=== PATIENT | male | born 1950 | race Caucasian/White ===

== ENCOUNTER 2022-06-19 14:39 | Inpatient (IN) | payer MEDICARE, OTHER ==
[~2022-06-19] VITALS: Ht 182.9 cm; Wt 82.1 kg
--- NOTE | 2022-06-19 15:18 | NUR ---
MOVE SHEET SUBMITTED.
[2022-06-19] MEDS ORDERED: MORPHINE SULFATE INJ 2 MG/ML DISP.SYRIN IV ONE (15:30)
--- NOTE | 2022-06-19 15:33 | NUR ---
IV ESTABLISHED. L HAND 20G
[2022-06-19] MEDS ORDERED: MORPHINE SULFATE INJ 4 MG/ML DISP.SYRIN ONE (15:35)
[2022-06-19] MEDS ORDERED: DOCU100C58 PO (15:55)
[2022-06-19] MEDS ORDERED: DIVA-76 PO (15:55)
[2022-06-19] MEDS ORDERED: BENA40TA8 PO (15:55)
[2022-06-19] MEDS ORDERED: SENN-261 PO (15:55)
[2022-06-19] MEDS ORDERED: BENZ1TAB7 PO (15:55)
[2022-06-19] MEDS ORDERED: PARO20TA7 PO (15:55)
[2022-06-19] MEDS ORDERED: ASCO-352 PO (15:55)
[2022-06-19] MEDS ORDERED: LORA-259 PO (15:55)
[2022-06-19] MEDS ORDERED: ACET-868 PO (15:55)
[2022-06-19] MEDS ORDERED: FLUP5TAB14 PO (15:55)
[2022-06-19] MEDS ORDERED: METO25TA20 PO (15:55)
[2022-06-19] MEDS ORDERED: ATOR10TA PO (15:55)
[2022-06-19] MEDS ORDERED: TAMS-12 PO (15:55)
[2022-06-19] MEDS ORDERED: AMLO-213 PO (15:55)
[2022-06-19] MEDS ORDERED: MAG30ORA PO (15:55)
[2022-06-19] MEDS ORDERED: CYAN-51 PO (15:55)
[2022-06-19] MEDS ORDERED: TEMA15CA PO (15:55)
[2022-06-19 15:57] LABS: BASOPHILS % (AUTO) 0.1 % (0.0-2.0); HEMATOCRIT 38 % (39-51); HEMOGLOBIN 12.6 g/dL (13.5-17.5); LYMPHOCYTES # (AUTO) 0.8 K/uL (0.8-4.8); LYMPHOCYTES % (AUTO) 11.6 % (20.0-44.0); MEAN CORPUSCULAR HGB CONC 33 g/dl (31.0-36.0); MEAN CORPUSCULAR VOLUME 96 fL (80-96); MONOCYTES # (AUTO) 1.1 K/uL (0.1-1.30); MONOCYTES % (AUTO) 15.6 % (2.0-12.0); NEUTROPHILS # (AUTO) 5.3 K/uL (1.8-8.9); NEUTROPHILS % (AUTO) 72.7 % (43.0-81.0); PLATELET COUNT (AUTO) 208 K/uL (150-450); RED BLOOD CELL COUNT(AUTO) 3.94 MIL/uL (4.5-6.0); WHITE BLOOD COUNT (AUTO) 7.3 K/uL (4.3-11.0)
[2022-06-19 16:33] LABS: CALCIUM, SERUM 9.4 mg/dL (8.5-10.1); CREATININE 1.4 mg/dL (0.6-1.3); POTASSIUM 4.1 mmol/L (3.5-5.1)
--- NOTE | 2022-06-19 16:41 | NUR ---
HIRAL SANCHEZ COLLECTED, SENT TO LAB
--- NOTE | 2022-06-19 16:49 | NUR ---
[facility] SWAB TAKEN BY TECH
[2022-06-19 17:11] LABS: ALBUMIN 2.9 g/dL (3.4-5.0); BILIRUBIN,DIRECT 0.2 mg/dL (0.0-0.2); BILIRUBIN,TOTAL 0.6 mg/dL (0.2-1.0); TOTAL PROTEIN, SERUM 8.6 g/dL (6.4-8.2)
--- NOTE | 2022-06-19 17:12 | NUR ---
CONTACTED DR. BRAXTON TO CALL US BACK.
--- NOTE | 2022-06-19 17:32 | NUR ---
GOT BED 325-2 ADMITTING INFORMED.
--- NOTE | 2022-06-19 17:42 | NUR ---
report given to Rita for continuation of care. Going to bed 325-2.
[2022-06-19] MEDS ORDERED: IV NS 0.9% 1,000 ML IV ONE (18:00)
--- NOTE | 2022-06-19 18:09 | NUR ---
CALLED [facility] DR. BRAXTON [phone] X [phone] PAGED.
--- NOTE | 2022-06-19 18:38 | NUR ---
DR. DUENAS SPEAKING WITH DR. SHAVER.
--- NOTE | 2022-06-19 18:44 | NUR ---
PATIENT TRANSPORTED TO BED 325-2
--- NOTE | 2022-06-19 19:30 | NUR ---
MS BIOSTATISTICS MANAGER NOTE RECEIVED REPORT FROM OUTGOING NURSE CELIO. PATIENT IN BED, AWAKE, ALERT AND ORIENTED X3. AFEBRILE AND NOT IN ANY FORM OF ACUTE DISTRESS. ABLE TO MAKE NEEDS KNOWN. PATIENT CAME TO THE HOSPITAL AFTER FALL WHILE TRANSFERRING TO THE WHEEL CHAIR AND WAS DIAGNOSED WITH CLOSED HIP RIGHT FRACTURE. EXPLAINED ADMISSION PROCESS WHICH INCLUDES SKIN ASSESSMENT AND THE PATIENT AGREED. UPON INSPECTION, PATIENT WAS NOTED DISCOLORATION ON THE AFFECTED AREA (R HIP). HAS IV ACCESS ON L HAND 20G-SL. SAFETY MEASURES IN PLACE. KEPT BED IN LOCKED AND IN LOW POSITION. SIDE RAILS UP X2. ADVISED TO USE THE CALL LIGHT WHEN IN NEED OF ASSISTANCE.
[2022-06-19 20:00] VITALS: BP 142/87
--- NOTE | 2022-06-19 20:10 | NUR ---
MS RN NOTES TRIED TO CALL JOVON ASENCIO (IMMEDIATE CARDROOM ATTENDANT) TO INFORM ABOUT THE ADMISSION AND TO GET CONSENT FOR PROPOSED PROCEDURE FOR TOMORROW BUT UNABLE TO GET HOLD. LEFT VOICE MESSAGE TO CALL THE UNIT BACK.
[2022-06-19] MEDS ORDERED: ACETAMINOPHEN 325 MG TABLET PO PRN (20:30)
[2022-06-19] MEDS ORDERED: ONDANSETRON HCL/PF 4 MG/2 ML VIAL IVP PRN (20:30)
[2022-06-19] MEDS ORDERED: ZOLPIDEM TARTRATE 5 MG TABLET PO PRN (20:30)
[2022-06-19] MEDS: IV NS 0.9% 1,000 ML IV PRN (20:50)
[2022-06-19] MEDS: HEPARIN SODIUM, PORCINE 5000 UNITS/1 ML VIAL SQ SCH (20:53)
[2022-06-20 05:45] LABS: BASOPHILS % (AUTO) 0.2 % (0.0-2.0); EOSINOPHILS % (AUTO) 0.1 % (0.0-6.0); HEMATOCRIT 38 % (39-51); HEMOGLOBIN 12.6 g/dL (13.5-17.5); LYMPHOCYTES % (AUTO) 14.7 % (20.0-44.0); MEAN CORPUSCULAR HGB CONC 34 g/dl (31.0-36.0); MEAN CORPUSCULAR VOLUME 95 fL (80-96); MONOCYTES # (AUTO) 1.3 K/uL (0.1-1.30); MONOCYTES % (AUTO) 19.2 % (2.0-12.0); NEUTROPHILS # (AUTO) 4.3 K/uL (1.8-8.9); NEUTROPHILS % (AUTO) 65.8 % (43.0-81.0); PLATELET COUNT (AUTO) 188 K/uL (150-450); RED BLOOD CELL COUNT(AUTO) 3.94 MIL/uL (4.5-6.0); WHITE BLOOD COUNT (AUTO) 6.5 K/uL (4.3-11.0)
[2022-06-20 06:02] LABS: CALCIUM, SERUM 9.1 mg/dL (8.5-10.1); CREATININE 1.2 mg/dL (0.6-1.3); MAGNESIUM 1.9 mg/dL (1.8-2.4); POTASSIUM 4.1 mmol/L (3.5-5.1)
--- NOTE | 2022-06-20 06:29 | NUR ---
MS RN CLOSING NOTE PATIENT IN BED, ASLEEP BUT EASY TO AROUSE AND RESPONSIVE. AFEBRILE AND NOT IN ANY FORM OF ACUTE DISTRESS. ABLE TO MAKE NEEDS KNOWN. ON O2 INHALATION VIA NASAL CANNULA AT 2LPM. WITH IV ACCESS ON L HAND 20G RUNNING WITH NS AT 75ML/HR. MAINTAINED ON NPO FOR PROPOSED PROCEDURE- CONSENT SIGNED AND SECURED. MEDICATED ORDERED. SAFETY MEASURES IN PLACE. KEPT BED IN LOCKED AND IN LOW POSITION. SIDE RAILS UP X2. ADVISED TO USE THE CALL LIGHT WHEN IN NEED OF ASSISTANCE. ALL NURSING NEEDS ATTENDED. ENDORSED TO INCOMING SHIFT FOR CONTINUITY OF CARE.
[2022-06-20 07:00] VITALS: BP 149/94
--- NOTE | 2022-06-20 07:48 | NUR ---
MS RN OPENING NOTE PATIENT AWAKE IN BED, A/OX3. NOT IN ANY FORM OF ACUTE DISTRESS. ABLE TO MAKE NEEDS KNOWN. ON O2 INHALATION VIA NASAL CANNULA AT 2LPM. WITH IV ACCESS ON L HAND 20G RUNNING WITH NS AT 75ML/HR. MAINTAINED ON NPO FOR PROPOSED PROCEDURE. SAFETY MEASURES IN PLACE. KEPT BED IN LOCKED AND IN LOW POSITION. SIDE RAILS UP X2. ADVISED TO USE THE CALL LIGHT WHEN IN NEED OF ASSISTANCE. ALL NURSING NEEDS ATTENDED. WILL CONTINUE TO MONITOR
[2022-06-20] MEDS: HEPARIN SODIUM, PORCINE 5000 UNITS/1 ML VIAL SQ SCH ×2 (08:34→21:00)
[2022-06-20] MEDS ORDERED: BUPIVACAINE 0.25% 75 MG/30 ML VIAL ONE (10:33)
[2022-06-20] MEDS ORDERED: LORAZEPAM 1 MG TABLET PO PRN (12:00)
[2022-06-20] MEDS ORDERED: TEMAZEPAM 15 MG CAPSULE PO PRN (12:00)
[2022-06-20] MEDS ORDERED: ACETAMINOPHEN 325 MG TABLET PO PRN (12:00)
[2022-06-20] MEDS ORDERED: HYDROCODONE/APAP 5/325MG TABLET PO PRN (12:00)
[2022-06-20] MEDS ORDERED: FLUPHENAZINE HCL 5 MG TABLET PO SCH (12:00)
[2022-06-20 12:05] LABS: BASOPHILS % (MANUAL) 0 % (0.0-2.0); EOSINOPHILS % (MANUAL) 0 % (0-4); LYMPHOCYTES % (MANUAL) 16 % (16-48); MONOCYTES % (MANUAL) 11 % (0-11.0); NEUTROPHILS % (MANUAL) 73 (42-76)
[2022-06-20] MEDS: FLUPHENAZINE HCL 10 MG TABLET PO SCH ×2 (12:50→17:51)
[2022-06-20] MEDS: PAROXETINE HCL 20 MG TABLET PO SCH (12:50)
[2022-06-20] MEDS: BENZTROPINE MESYLATE (1 MG) 1 MG TABLET PO SCH ×2 (12:52→17:52)
[2022-06-20] MEDS: CYANOCOBALAMIN 500 MCG TABLET PO SCH (12:52)
[2022-06-20] MEDS: ASCORBIC ACID 500 MG TABLET PO SCH (12:52)
[2022-06-20] MEDS: AMLODIPINE BESYLATE 10 MG TABLET PO SCH (12:52)
[2022-06-20] MEDS: DOCUSATE SODIUM 100 MG CAPSULE PO SCH ×2 (12:52→17:51)
[2022-06-20] MEDS: METOPROLOL TARTRATE 25 MG TABLET PO SCH ×2 (12:53→21:08)
[2022-06-20] MEDS: DIVALPROEX SODIUM 250 MG TABLET.DR PO SCH ×2 (12:53→17:00)
[2022-06-20] MEDS: IV NS 0.9% 1,000 ML IV PRN (15:09)
[2022-06-20 18:29] LABS: BILIRUBIN,URINE NEGATIVE (NEGATIVE); COLOR,URINE YELLOW (YELLOW); LEUKOCYTE ESTERASE ,URINE NEGATIVE (NEGATIVE); NITRITE, URINE NEGATIVE (NEGATIVE); PH,URINE 6.5 (5.0-8.0); PROTEIN,URINE NEGATIVE (NEGATIVE); UGLUCOSE NEGATIVE (NEGATIVE)
--- NOTE | 2022-06-20 19:00 | NUR ---
RN NOTES RENAL ULTRASOUND RESULT: Extensive bladder distention with prevoid bladder volume of 2493 cc and significant residual post void bladder volume of 2087 cc. Josue BUSINESS MANAGEMENT CONSULTANT made aware with bonilla catheter insertion ordered. Bonilla catheter inserted with total volume of 2000ml urine noted.
[2022-06-20 19:14] LABS: BACTERIA,URINE None seen /HPF (None Seen); RBC,URINE 0-2 /HPF (0-2); SQUAMOUS EPITHELIAL CELL,UR 0-2 /HPF (None Seen); WBC,URINE 0-2 /HPF (0-3)
--- NOTE | 2022-06-20 19:30 | NUR ---
MS RN OPENING NOTES RECEIVED PT SLEEPING AT THIS TIME, EASILY AROUSED. A/O X2-3, ABLE TO VERBALIZE NEEDS. NO RESPIRATORY OR CARDIAC DISTRESS NOTED. IV ACCESS LAC #20G, RUNNING NS @ 75 ML/HR. HERNANDEZ CATHETER IN PLACE, DRAINING CLEAR YELLOW URINE. SAFETY PRECAUTIONS IN PLACE: BED LOCKED AND IN LOWEST POSITION, SIDE RAILS UP X2, BED ALARM ON, CALL LIGHT AND TRAY TABLE WITHIN REACH. WILL CONTINUE TO MONITOR AND ASSIST. Addendum: 06/20/22 at 2000 by BELINDA ROSAS RN CORRECTION: IV ACCESS L HAND
[2022-06-20 20:00] VITALS: BP 140/80
--- NOTE | 2022-06-20 20:09 | NUR ---
MS RN CLOSING NOTE PATIENT IN BED, ASLEEP BUT EASY TO AROUSE AND RESPONSIVE. AFEBRILE AND NOT IN ANY FORM OF ACUTE DISTRESS. ABLE TO MAKE NEEDS KNOWN. ON O2 INHALATION VIA NASAL CANNULA AT 2LPM. WITH IV ACCESS ON L HAND 20G RUNNING WITH NS AT 75ML/HR. ON CARDIAC DIET CURRENTLY, WILL BE NPO POST MIDNIGHT FOR THE PROCEDURE TOMORROW. SAFETY MEASURES IN PLACE. KEPT BED IN LOCKED AND IN LOW POSITION. SIDE RAILS UP X2. ADVISED TO USE THE CALL LIGHT WHEN IN NEED OF ASSISTANCE. ALL NURSING NEEDS ATTENDED. ENDORSED TO INCOMING SHIFT FOR CONTINUITY OF CARE.
[2022-06-20] MEDS: SENNOSIDES 8.6 MG TABLET PO SCH (21:08)
[2022-06-20] MEDS: ATORVASTATIN 10 MG TABLET PO SCH (21:09)
[2022-06-20] MEDS: TAMSULOSIN 0.4 MG CAP.SR.24H PO SCH (21:09)
--- NOTE | 2022-06-20 21:18 | NUR ---
RN NOTE CONSULTED WITH DR BLAS ABOUT SCHEDULED HEPARIN 5000 UNITS @ 2100 RELATED TO SX FOR TOMORROW AM. MD ORDERED TO HOLD MEDICATION.
[2022-06-20] MEDS ORDERED: ANESTHESIA TRAY IN PYXIS 1 EA TRAY MC ONE (22:05)
[2022-06-21] MEDS: IV NS 0.9% 1,000 ML IV PRN (03:10)
[2022-06-21 06:17] LABS: CALCIUM, SERUM 8.9 mg/dL (8.5-10.1); MAGNESIUM 1.9 mg/dL (1.8-2.4); PHOSPHORUS 3.9 mg/dL (2.5-4.9)
--- NOTE | 2022-06-21 06:36 | NUR ---
MS RN CLOSING NOTES PT SLEEPING AT THIS TIME, EASILY AROUSED. A/O X2-3, ABLE TO VERBALIZE NEEDS. STABLE ON O2 2L VIA NC WITH NO RESPIRATORY OR CARDIAC DISTRESS NOTED. IV ACCESS L HAND #20G, RUNNING NS @ 75 ML/HR, PATENT AND INTACT. HERNANDEZ CATHETER IN PLACE, DRAINED 700ML OF CLEAR YELLOW URINE DURING SHIFT. NPO SINCE MIDNIGHT FOR SURGERY THIS AM. ALL CARE PROVIDED AND MEDS TOLERATED WELL. SAFETY PRECAUTIONS MAINTAINED: BED LOCKED AND IN LOWEST POSITION, SIDE RAILS UP X2, BED ALARM ON, CALL LIGHT AND TRAY TABLE WITHIN REACH. WILL ENDORSE SIS TO DAY SHIFT NURSE.
[2022-06-21 07:02] LABS: BASOPHILS % (AUTO) 0.3 % (0.0-2.0); EOSINOPHILS % (AUTO) 0.5 % (0.0-6.0); HEMATOCRIT 36 % (39-51); HEMOGLOBIN 12.2 g/dL (13.5-17.5); LYMPHOCYTES # (AUTO) 1.2 K/uL (0.8-4.8); LYMPHOCYTES % (AUTO) 20.3 % (20.0-44.0); MEAN CORPUSCULAR HGB CONC 34 g/dl (31.0-36.0); MEAN CORPUSCULAR VOLUME 96 fL (80-96); MONOCYTES # (AUTO) 1.2 K/uL (0.1-1.30); MONOCYTES % (AUTO) 19.4 % (2.0-12.0); NEUTROPHILS # (AUTO) 3.6 K/uL (1.8-8.9); NEUTROPHILS % (AUTO) 59.5 % (43.0-81.0); PLATELET COUNT (AUTO) 196 K/uL (150-450); RED BLOOD CELL COUNT(AUTO) 3.73 MIL/uL (4.5-6.0)
[2022-06-21] MEDS ORDERED: Magnesium 1 GM/2 ML VIAL ONE (07:15)
[2022-06-21] MEDS ORDERED: POLYMYXIN B SULFATE 500,000 UNITS ONE (07:16)
[2022-06-21] MEDS ORDERED: TRANEXAMIC ACID 1,000 MG/10 ML VIAL ONE ×2 (07:16→09:06)
[2022-06-21] MEDS ORDERED: BUPIVACAINE 0.25% 75 MG/30 ML VIAL ONE ×2 (07:17→07:36)
--- NOTE | 2022-06-21 07:20 | NUR ---
MS RN OPENING NOTES PT AWAKE A/O X2-3, ABLE TO VERBALIZE NEEDS. STABLE ON O2 2L VIA NC WITH NO RESPIRATORY OR CARDIAC DISTRESS NOTED. IV ACCESS L HAND #20G, RUNNING NS @ 75 ML/HR, PATENT AND INTACT. HERNANDEZ CATHETER IN PLACE, DRAINING CLEAR YELLOW URINE DURING SHIFT. NPO SINCE MIDNIGHT ENDORSED, PATIENT WAS DRIVE AWAY DRIVER BY OR STAFF FOR SURGERY TODAY. WILL MONITOR.
[2022-06-21] MEDS ORDERED: ALBUTEROL FS 2.5 MG/0.5 ML VIAL.NEB NEB ONE (07:30)
[2022-06-21] MEDS ORDERED: PANTOPRAZOLE 40 MG VIAL IV ONE (07:30)
[2022-06-21] MEDS ORDERED: FAMOTIDINE/PF INJ 20 MG/2 ML VIAL IV ONE (07:36)
[2022-06-21] MEDS ORDERED: FENTANYL PF 100MCG/2ML AMPUL ONE (07:36)
[2022-06-21] MEDS ORDERED: SUCCINYLCHOLINE CHLORIDE 20 MG/ML VIAL ONE (07:36)
[2022-06-21] MEDS ORDERED: ROCURONIUM BROMIDE 50 MG/5 ML ONE (07:36)
[2022-06-21] MEDS ORDERED: ALBUMIN 5% 250 ML IV ONE ×2 (08:45)
[2022-06-21] MEDS: METOPROLOL TARTRATE 25 MG TABLET PO SCH ×2 (09:00→20:54)
[2022-06-21] MEDS: HEPARIN SODIUM, PORCINE 5000 UNITS/1 ML VIAL SQ SCH ×2 (09:00→20:55)
[2022-06-21] MEDS: ASCORBIC ACID 500 MG TABLET PO SCH (09:00)
[2022-06-21] MEDS: AMLODIPINE BESYLATE 10 MG TABLET PO SCH (09:00)
[2022-06-21] MEDS: FLUPHENAZINE HCL 10 MG TABLET PO SCH ×2 (09:00→17:54)
[2022-06-21] MEDS: DOCUSATE SODIUM 100 MG CAPSULE PO SCH ×2 (09:00→17:54)
[2022-06-21] MEDS: BENZTROPINE MESYLATE (1 MG) 1 MG TABLET PO SCH ×2 (09:00→17:54)
[2022-06-21] MEDS: DIVALPROEX SODIUM 250 MG TABLET.DR PO SCH ×2 (09:00→17:54)
[2022-06-21] MEDS: CYANOCOBALAMIN 500 MCG TABLET PO SCH (09:00)
[2022-06-21] MEDS: PAROXETINE HCL 20 MG TABLET PO SCH (09:00)
[2022-06-21] MEDS ORDERED: TRANEXAMIC ACID 3,000 MG in SODIUM CHLORIDE IRRIG SOLUTION 70 ML IR ONE (09:30)
[2022-06-21] MEDS ORDERED: MEPERIDINE25 MG SYR 25 MG/ML VIAL ONE (10:49)
[2022-06-21 10:55] LABS: HEMOGLOBIN 11.6 g/dL (13.5-17.5)
[2022-06-21 11:47] VITALS: BP 143/83
[2022-06-21] MEDS ORDERED: SENNOSIDES 8.6 MG TABLET PO PRN ×2 (12:00)
[2022-06-21] MEDS ORDERED: HYDROCODONE/APAP 5/325MG TABLET PO PRN ×2 (12:00)
[2022-06-21] MEDS ORDERED: DOCUSATE SODIUM 250 MG CAPSULE PO PRN (12:00)
[2022-06-21] MEDS ORDERED: BISACODYL SUPP (10 MG) 10 MG/SUPP.RECT SUPP.RECT RC PRN (12:00)
[2022-06-21] MEDS ORDERED: DOCUSATE SODIUM 100 MG CAPSULE PO PRN (12:00)
[2022-06-21] MEDS ORDERED: ACETAMINOPHEN 325 MG TABLET PO PRN (12:00)
--- NOTE | 2022-06-21 12:35 | NUR ---
RN NOTES PATIENT CAME BACK FROM SURGERY S/P RIGHT HIP HEMIATHROSPLASTY, AWAKE BUT LETHARGIC, A/OX2. NO SIGNS OF RESPIRATORY OR CARDIAC DISTRESS NOTED. ON OXYGEN AT 6LPM, TOLERATING WELL. VITALS TAKEN,STABLE AND RECORDED BP-143/83 RR-20 UT-92 T-98.2 SPO2-99 AT 6LPM. RIGHT HIP DRESSING NOTED, DRY AND INTACT, NO BLEEDING OR SWELLING NOTED. HERNANDEZ CATHETER IN PLACE DRAINING YELLOW URINE. PATIENT NO C/O PAIN OR DISCOMFORT AT THIS TIME. RECEIVED A CALL FROM PACU NURSE TIERNEY TO CHANGE DRESSING ON DAY 2 POST OP BY NURSE ON DUTY. WILL MONITOR PATIENT ACCORDINGLY.
[2022-06-21] MEDS: MORPHINE SULFATE INJ 4 MG/ML DISP.SYRIN IV PRN ×2 (13:15→17:53)
--- NOTE | 2022-06-21 13:16 | NUR ---
RN NOTES PATIENT C/O PAIN, PRN MORPHINE ADMINISTERED. WILL MONITOR.
[2022-06-21 15:56] VITALS: BP 134/89
[2022-06-21] MEDS: ANCEF 1 GM/50 ML D5W IV SCH ×2 (16:36)
--- NOTE | 2022-06-21 18:35 | NUR ---
MS RN CLOSING NOTE PT SLEEPING AT THIS TIME, EASILY AROUSED. A/O X2-3, ABLE TO VERBALIZE NEEDS. STABLE ON O2 2L VIA NC WITH NO RESPIRATORY OR CARDIAC DISTRESS NOTED. IV ACCESS RT HAND #20G, RUNNING NS @ 75 ML/HR, PATENT AND INTACT. HERNANDEZ CATHETER IN PLACE DRAINING 1200ML YELLOW URINE DURING SHIFT. SURGERY DONE THIS AFTERNOON, NO COMPLICATIONS NOTED. ALL CARE PROVIDED AND MEDS TOLERATED WELL. SAFETY PRECAUTIONS MAINTAINED: BED LOCKED AND IN LOWEST POSITION, SIDE RAILS UP X2, BED ALARM ON, CALL LIGHT AND TRAY TABLE WITHIN REACH. WILL ENDORSE SIS TO ALCOHOL LAW ENFORCEMENT AGENT NURSE.
--- NOTE | 2022-06-21 19:30 | NUR ---
MS RN OPENING NOTE RECEIVED PATIENT IN BED, WITH HOB ELEVATED, EYES CLOSED. ALERT AND ORIENTED X2-3. AFEBRILE AND NOT IN ANY FORM OF ACUTE DISTRESS. ON O2 INHALATION VIA NASAL CANNULA AT 2LPM. WITH IV ACCESS ON R HAND 20G RUNNING WITH NS AT 75ML/HR. S/P R HIP HEMIARTHROPLASTY, DRESSING DRY AND INTACT. SAFETY MEASURES IN PLACE. KEPT BED IN LOCKED AND IN LOW POSITION. SIDE RAILS UP X2. ADVISED TO USE THE CALL LIGHT WHEN IN NEED OF ASSISTANCE.
[2022-06-21 20:00] VITALS: BP_SYST 122; BP_SYST 139; BP_DIAS 70; BP_DIAS 74
[2022-06-21] MEDS: SENNOSIDES 8.6 MG TABLET PO SCH (21:13)
[2022-06-21] MEDS: ATORVASTATIN 10 MG TABLET PO SCH (21:13)
[2022-06-21] MEDS: TAMSULOSIN 0.4 MG CAP.SR.24H PO SCH (21:13)
[2022-06-22] MEDS: ANCEF 1 GM/50 ML D5W IV SCH ×2 (00:09)
[2022-06-22] MEDS: IV NS 0.9% 1,000 ML IV PRN ×2 (00:10→15:42)
[2022-06-22 03:11] LABS: BAND % (MANUAL) 5 % (0.0-5.0); BASOPHILS % (MANUAL) 0 % (0.0-2.0); EOSINOPHILS % (MANUAL) 0 % (0-4); LYMPHOCYTES % (MANUAL) 18 % (16-48); MONOCYTES % (MANUAL) 15 % (0-11.0); NEUTROPHILS % (MANUAL) 62 (42-76)
[2022-06-22] MEDS: MORPHINE SULFATE INJ 2 MG/ML DISP.SYRIN IV PRN ×2 (04:35→14:31)
--- NOTE | 2022-06-22 06:21 | NUR ---
MS RN CLOSING NOTE PATIENT IN BED, WITH HOB ELEVATED, ASLEEP BUT EASY TO AROUSE AND RESPONSIVE. AFEBRILE AND NOT IN ANY FORM OF ACUTE DISTRESS. ON O2 INHALATION VIA NASAL CANNULA AT 2LPM. WITH IV ACCESS ON R HAND 20G RUNNING WITH NS AT 75ML/HR. S/P R HIP HEMIARTHROPLASTY, DRESSING DRY AND INTACT, NO BLEEDING NOTED ON THE SITE. WITH HERNANDEZ CATHETER, INTACT AND DRAINING WELL WITH GIGI COLORED URINE OUTPUT, NO HEMATURIA OR SEDIMENTS NOTED WITH APPROX. 300ML URINE OUTPUT DURING THE SHIFT. MEDICATED ORDERED. CONTINUOUS ON IV ATB, MONITORED FOR ANY ADVERSE REACTION. SAFETY MEASURES IN PLACE. KEPT BED IN LOCKED AND IN LOW POSITION. SIDE RAILS UP X2. ADVISED TO USE THE CALL LIGHT WHEN IN NEED OF ASSISTANCE. ALL NURSING NEEDS ATTENDED. ENDORSED TO INCOMING SHIFT FOR CONTINUITY OF CARE.
[2022-06-22 06:31] LABS: BASOPHILS % (AUTO) 0.1 % (0.0-2.0); HEMATOCRIT 31 % (39-51); HEMOGLOBIN 10.4 g/dL (13.5-17.5); LYMPHOCYTES # (AUTO) 1.2 K/uL (0.8-4.8); MEAN CORPUSCULAR HGB CONC 33 g/dl (31.0-36.0); MEAN CORPUSCULAR VOLUME 96 fL (80-96); MONOCYTES # (AUTO) 1.6 K/uL (0.1-1.30); MONOCYTES % (AUTO) 19.6 % (2.0-12.0); NEUTROPHILS # (AUTO) 5.3 K/uL (1.8-8.9); NEUTROPHILS % (AUTO) 65.3 % (43.0-81.0); PLATELET COUNT (AUTO) 187 K/uL (150-450); RED BLOOD CELL COUNT(AUTO) 3.27 MIL/uL (4.5-6.0); WHITE BLOOD COUNT (AUTO) 8.1 K/uL (4.3-11.0)
[2022-06-22 06:55] LABS: CALCIUM, SERUM 8.7 mg/dL (8.5-10.1); CREATININE 1.1 mg/dL (0.6-1.3); MAGNESIUM 1.9 mg/dL (1.8-2.4); PHOSPHORUS 3.5 mg/dL (2.5-4.9); POTASSIUM 4.5 mmol/L (3.5-5.1)
--- NOTE | 2022-06-22 07:30 | NUR ---
MS RN OPENING NOTE PATIENT SLEEPING IN BED, EASY TO AROUSE AND RESPONSIVE. AFEBRILE AND NOT IN ANY FORM OF ACUTE DISTRESS. ON O2 INHALATION VIA NASAL CANNULA AT 2LPM. WITH IV ACCESS ON R HAND 20G RUNNING WITH NS AT 75ML/HR. S/P R HIP HEMIARTHROPLASTY, DRESSING DRY AND INTACT, NO BLEEDING NOTED ON THE SITE. WITH HERNANDEZ CATHETER, INTACT AND DRAINING WELL WITH GIGI COLORED URINE OUTPUT, NO HEMATURIA OR SEDIMENTS NOTED. SAFETY MEASURES IN PLACE. KEPT BED IN LOCKED AND IN LOW POSITION. SIDE RAILS UP X2. WILL CONTINUE TO MONITOR.
[2022-06-22 08:00] VITALS: BP 141/83
[2022-06-22] MEDS: FLUPHENAZINE HCL 10 MG TABLET PO SCH ×2 (08:55→16:57)
[2022-06-22] MEDS: PAROXETINE HCL 20 MG TABLET PO SCH (08:55)
[2022-06-22] MEDS: METOPROLOL TARTRATE 25 MG TABLET PO SCH ×2 (08:55→21:18)
[2022-06-22] MEDS: CYANOCOBALAMIN 500 MCG TABLET PO SCH (08:56)
[2022-06-22] MEDS: BENZTROPINE MESYLATE (1 MG) 1 MG TABLET PO SCH ×2 (08:56→16:57)
[2022-06-22] MEDS: DIVALPROEX SODIUM 250 MG TABLET.DR PO SCH ×2 (08:56→16:57)
[2022-06-22] MEDS: ASCORBIC ACID 500 MG TABLET PO SCH (08:56)
[2022-06-22] MEDS: DOCUSATE SODIUM 100 MG CAPSULE PO SCH ×2 (08:56→16:57)
[2022-06-22] MEDS: AMLODIPINE BESYLATE 10 MG TABLET PO SCH (08:56)
[2022-06-22] MEDS: HEPARIN SODIUM, PORCINE 5000 UNITS/1 ML VIAL SQ SCH ×2 (08:58→21:19)
[2022-06-22 12:11] LABS: BASOPHILS % (MANUAL) 0 % (0.0-2.0); EOSINOPHILS % (MANUAL) 0 % (0-4); LYMPHOCYTES % (MANUAL) 12 % (16-48); MONOCYTES % (MANUAL) 17 % (0-11.0); NEUTROPHILS % (MANUAL) 71 (42-76)
--- NOTE | 2022-06-22 15:57 | NUR ---
RN NOTES REMOVED HERNANDEZ CATHETER, WILL MONITOR FOR URINE OUTPUT.
[2022-06-22 16:00] VITALS: BP 132/66
--- NOTE | 2022-06-22 18:55 | NUR ---
MS RN CLOSING NOTE PATIENT SLEEPING IN BED, EASY TO AROUSE AND RESPONSIVE. A/OX2, AFEBRILE AND NOT IN ANY FORM OF ACUTE DISTRESS. ON O2 INHALATION VIA NASAL CANNULA AT 3LPM. WITH IV ACCESS ON R HAND 20G RUNNING WITH NS AT 75ML/HR. S/P R HIP HEMIARTHROPLASTY, DRESSING DRY AND INTACT, NO BLEEDING NOTED ON THE SITE. REMOVED HERNANDEZ CATHETER AT 1600H ORDERED, TO MONITOR FOR URINE OUTPUT FOR 6HOURS. NO URINE OUTPUT OF THE THIS TIME, BLADDER SCAN DONE WITH 236ML REMAINING IN THE BLADDER, NOTIFIED CHRISTA MARINELLI WITH [employer] TO CONTINUE TO MONITOR URINE OUTPUT. SAFETY MEASURES IN PLACE. KEPT BED IN LOCKED AND IN LOW POSITION. SIDE RAILS UP X2. WILL CONTINUE TO MONITOR.
--- NOTE | 2022-06-22 19:30 | NUR ---
MS RN OPENING NOTE RECEIVED PT SLEEPING IN BED, EASY TO AROUSE AND RESPONSIVE. A/OX2, AFEBRILE AND NOT IN ANY FORM OF ACUTE DISTRESS. ON O2 3L VIA NC, WITH NO S/S OF SOB OR DISTRESS. DENIES PAIN AT THIS TIME. IV ACCESS L HAND #20G SL, R HAND #20G RUNNING WITH NS AT 75ML/HR. BOTH PATENT, INTACT, FLUSHING WELL. S/P R HIP HEMIARTHROPLASTY, DRESSING DRY AND INTACT, NO BLEEDING NOTED ON THE SITE. CONDOM CATHETER IN PLACE, NO URINE DRAINAGE NOTED IN BAG. WAS ENDORSED BY DAY SHIFT NURSE TO MONITOR URINE OUTPUT PER MD ORDER. SAFETY MEASURES IN PLACE: BED IN LOCKED AND IN LOW POSITION, SIDE RAILS UP X2, CALL LIGHT AND TRAY TABLE WITHIN REACH. WILL CONTINUE TO MONITOR AND ASSIST.
[2022-06-22 20:00] VITALS: BP 123/66
[2022-06-22 20:22] VITALS: BP 123/66
[2022-06-22] MEDS: ATORVASTATIN 10 MG TABLET PO SCH (21:17)
[2022-06-22] MEDS: SENNOSIDES 8.6 MG TABLET PO SCH (21:17)
[2022-06-22] MEDS: TAMSULOSIN 0.4 MG CAP.SR.24H PO SCH (21:17)
[2022-06-22] MEDS: MORPHINE SULFATE INJ 4 MG/ML DISP.SYRIN IV PRN (22:59)
--- NOTE | 2022-06-23 00:07 | NUR ---
RN NOTE URINARY CONDOM CATHETER IN PLACE, STILL NO DRAINING URINE NOTED IN BAG. BLADDER SCAN PERFORMED, MEASURED >528 ML OF URINARY RETENTION. FUEL DOCK ATTENDANT MARILOU BLAS INFORMED AND ORDERED INSERTION HERNANDEZ CATHETER.
--- NOTE | 2022-06-23 00:28 | NUR ---
RN NOTE HERNANDEZ CATH INSERTED ORDERED. PT TOLERATED WELL. 475 ML OF CLEAR YELLOW URINE DRAINAGE NOTED IN BAG.
[2022-06-23] MEDS: IV NS 0.9% 1,000 ML IV PRN (04:57)
--- NOTE | 2022-06-23 06:53 | NUR ---
MS RN CLOSING NOTE PT SLEEPING IN BED AT THIS TIME, EASILY AROUSABLE. A/O X2-3, ABLE TO MAKE NEEDS KNOWN, AFEBRILE. STABLE ON O2 3L VIA NC, WITH NO S/S OF SOB OR DISTRESS. DENIES PAIN AT THIS TIME. IV ACCESS L HAND #20G SL, R HAND #20G RUNNING WITH NS AT 75ML/HR. BOTH PATENT, INTACT, FLUSHING WELL. S/P R HIP HEMIARTHROPLASTY, DRESSING DRY AND INTACT, NO BLEEDING NOTED ON THE SITE. FIRST DRESSING CHANGE SCHEDULED POD #2 @ 1200, UNABLE TO TAKE PHOTO OF SX INCISION SITE. HERNANDEZ CATHETER INSERTED PER MD ORDER DUE TO URINARY RETENTION OF 528 ML PER BLADDER SCAN. ALL CARE PROVIDED AND MEDS TOLERATED WELL. SAFETY MEASURES MAINTAINED: BED IN LOCKED AND IN LOW POSITION, SIDE RAILS UP X2, CALL LIGHT AND TRAY TABLE WITHIN REACH. WILL ENDORSE SIS TO DAY SHIFT NURSE.
[2022-06-23 06:56] LABS: BASOPHILS % (AUTO) 0.4 % (0.0-2.0); EOSINOPHILS % (AUTO) 0.5 % (0.0-6.0); HEMATOCRIT 28 % (39-51); HEMOGLOBIN 9.3 g/dL (13.5-17.5); LYMPHOCYTES # (AUTO) 1.2 K/uL (0.8-4.8); LYMPHOCYTES % (AUTO) 20.7 % (20.0-44.0); MEAN CORPUSCULAR HGB CONC 34 g/dl (31.0-36.0); MEAN CORPUSCULAR VOLUME 97 fL (80-96); MONOCYTES % (AUTO) 17.6 % (2.0-12.0); NEUTROPHILS # (AUTO) 3.5 K/uL (1.8-8.9); NEUTROPHILS % (AUTO) 60.8 % (43.0-81.0); PLATELET COUNT (AUTO) 141 K/uL (150-450); RED BLOOD CELL COUNT(AUTO) 2.86 MIL/uL (4.5-6.0); WHITE BLOOD COUNT (AUTO) 5.8 K/uL (4.3-11.0)
[2022-06-23 07:00] VITALS: BP 140/76
[2022-06-23 07:09] LABS: CALCIUM, SERUM 8.5 mg/dL (8.5-10.1); CREATININE 0.9 mg/dL (0.6-1.3); MAGNESIUM 1.8 mg/dL (1.8-2.4); PHOSPHORUS 3.1 mg/dL (2.5-4.9); POTASSIUM 4.3 mmol/L (3.5-5.1)
--- NOTE | 2022-06-23 07:35 | NUR ---
MS RN OPENING NOTE PATIENT SLEEPING IN BED, EASILY BEING AWAKENED. A/OX2-3. ABLE TO MAKE NEEDS KNOWN. ON O2 INHALATION VIA NASAL CANNULA AT 2LPM, BREATHING EVEN AND NON LABORED. WITH IV ACCESS ON R HAND 20G RUNNING WITH NS AT 75ML/HR AND LEFT HAND 20G, PATENT AND INTACT, SL. S/P R HIP HEMIARTHROPLASTY, DRESSING DRY AND INTACT, NO BLEEDING NOTED ON THE SITE. WITH HERNANDEZ CATHETER, INTACT AND DRAINING WELL WITH GIGI COLORED URINE OUTPUT, NO HEMATURIA NOTED. SAFETY MEASURES IN PLACE. KEPT BED IN LOCKED AND IN LOW POSITION. SIDE RAILS UP X2. WILL CONTINUE TO MONITOR.
[2022-06-23 08:03] LABS: BAND % (MANUAL) 1 % (0.0-5.0); LYMPHOCYTES % (MANUAL) 22 % (16-48); MONOCYTES % (MANUAL) 17 % (0-11.0); NEUTROPHILS % (MANUAL) 60 (42-76)
[2022-06-23] MEDS: DIVALPROEX SODIUM 250 MG TABLET.DR PO SCH ×2 (08:27→16:45)
[2022-06-23 08:28] VITALS: BP 140/76
[2022-06-23] MEDS: METOPROLOL TARTRATE 25 MG TABLET PO SCH (08:28)
[2022-06-23] MEDS: AMLODIPINE BESYLATE 10 MG TABLET PO SCH (08:28)
[2022-06-23] MEDS: DOCUSATE SODIUM 100 MG CAPSULE PO SCH ×2 (08:28→16:46)
[2022-06-23] MEDS: FLUPHENAZINE HCL 10 MG TABLET PO SCH ×2 (08:29→16:46)
[2022-06-23] MEDS: PAROXETINE HCL 20 MG TABLET PO SCH (08:29)
[2022-06-23] MEDS: BENZTROPINE MESYLATE (1 MG) 1 MG TABLET PO SCH ×2 (08:29→16:45)
[2022-06-23] MEDS: CYANOCOBALAMIN 500 MCG TABLET PO SCH (08:30)
[2022-06-23] MEDS: ASCORBIC ACID 500 MG TABLET PO SCH (08:31)
[2022-06-23] MEDS: HEPARIN SODIUM, PORCINE 5000 UNITS/1 ML VIAL SQ SCH (08:31)
[2022-06-23] MEDS: MORPHINE SULFATE INJ 4 MG/ML DISP.SYRIN IV PRN (09:55)
[2022-06-23] MEDS ORDERED: ENOX40DI SQ (13:17)
--- NOTE | 2022-06-23 14:32 | NUR ---
RN NOTE [facility] AND GAVE REPORT TO LIOR ADAMS @[phone]
--- NOTE | 2022-06-23 17:30 | NUR ---
GUM WORKER NOTE PATIENT DISCHARGE IN STABLE MEDICAL CONDITION. VS TAKEN, STABKE AND RECORDED. NO IV ACCESS. SKIN ASSESSMENT DONE. KEPT PT CLEAN AND DRY. SURGICAL INCISION WOUND AT RIGHT HIP. ALL BELONGINGS CHECKED AND SIGNED. HEALTH TEACHING AND INSTRUCTION GIVEN. INSTRUCTED THE NURSE AT [facility] TO MAKE AN APPOINTMENT WITH [facility] IN 1-2 WEEKS. REPORT GIVEN TO LIOR ADAMS AT [facility]. PATIENT LEFT UNIT VIA GURNEY WITH NO SIGNS OF DISTRESS, ACCOMPANIED BY GEOCHEMICAL LABORATORY TECHNICIAN. CHARGE NURSE AWARE OF DISCHARGE.
== END 2022-06-23 18:26 | DRG 521 ==
LOC: ER 14:40 → MED 17:43
PROVIDERS: ADMIT Nurse Practitioner Acute Care; ATTEND Nurse Practitioner Acute Care
PROC: 0SRR0JZ Replacement of Right Hip Joint, Femoral Surface with Synthetic Substitute, Open Approach (ICD-10-PCS; principal; 2022-06-21)
DX: S72.031A Displaced midcervical fracture of right femur, initial encounter for closed fracture (principal); N17.0 Acute kidney failure with tubular necrosis; E87.1 Hypo-osmolality and hyponatremia; D68.69 Other thrombophilia; E44.0 Moderate protein-calorie malnutrition; F20.9 Schizophrenia, unspecified; E78.5 Hyperlipidemia, unspecified; E88.09 Other disorders of plasma-protein metabolism, not elsewhere classified; E86.0 Dehydration; Z20.822 Contact with and (suspected) exposure to COVID-19; Z88.0 Allergy status to penicillin; I10 Essential (primary) hypertension; W18.30XA Fall on same level, unspecified, initial encounter; F41.9 Anxiety disorder, unspecified; Z68.24 Body mass index [BMI] 24.0-24.9, adult; Y92.129 Unspecified place in nursing home as the place of occurrence of the external cause
CPT/HCPCS: 36415; 73501; 73502; 76770-TC; 80048-TC; 80061-TC; 80076-TC; 81001; 82962-TC; 83735-TC; 84100-TC; 84300-TC; 85025-TC; 85027-TC; 85730-TC; 86850-TC; 87081-TC; 93307-TC; 97112-TC; 97530-TC; A4217; A4223; A4349; A6209; C1776; C9113; G0378; J0330; J0690; J1100; J1644; J2175; J2270; J2370; J2405; J2704; J2765; J3010; J3475; J3490; J7030; J7050; J7060; P9016; P9045

== ENCOUNTER 2023-01-02 15:46 | Emergency (ER) | payer MEDICARE, OTHER ==
[~2023-01-02] VITALS: Ht 185.4 cm; Wt 83.0 kg
[~2023-01-02 15:46] MED LIST: ACET-868 PO; AMLO-213 PO; ASCO-352 PO; ATOR10TA PO; BENA40TA8 PO; BENZ1TAB7 PO; CYAN-51 PO; DIVA-76 PO; DOCU100C58 PO; ENOX40DI SQ; FLUP5TAB14 PO; LORA-259 PO; MAG30ORA PO; METO25TA20 PO; PARO20TA7 PO; SENN-261 PO; TAMS-12 PO; TEMA15CA PO
[2023-01-02] MEDS ORDERED: TRAMADOL HCL 50 MG TABLET PO ONE (17:30)
[2023-01-02] MEDS ORDERED: IBUPROFEN 600 MG TABLET PO ONE (17:30)
[2023-01-02] MEDS ORDERED: IBUPROFEN 600 MG TABLET ONE (17:34)
[2023-01-02] MEDS ORDERED: TRAMADOL HCL 50 MG TABLET ONE (17:35)
[2023-01-02 19:39] VITALS: BP 114/79; TEMP 98; O2SAT 98
== END 2023-01-02 19:40 ==
LOC: ER 16:07
DX: M25.551 Pain in right hip (principal); G20 Parkinson's disease; I10 Essential (primary) hypertension; F41.9 Anxiety disorder, unspecified; F20.9 Schizophrenia, unspecified; Z88.0 Allergy status to penicillin; Z88.8 Allergy status to other drugs, medicaments and biological substances; Z79.899 Other long term (current) drug therapy
CPT/HCPCS: 73502; 73552

== ENCOUNTER 2023-01-26 13:33 | Inpatient (IN) | payer MEDICARE, OTHER ==
[~2023-01-26] VITALS: Ht 172.7 cm; Wt 87.1 kg
[2023-01-26] MEDS ORDERED: AMIN30LI2 PO (14:10)
[2023-01-26] MEDS ORDERED: FERR325T23 PO (14:10)
[2023-01-26] MEDS ORDERED: HYDR-4303 PO (14:10)
[2023-01-26] MEDS ORDERED: APIX5TAB PO (14:10)
[2023-01-26] MEDS ORDERED: MULT-447 PO (14:10)
[2023-01-26] MEDS ORDERED: NALO4SPR NS (14:10)
[2023-01-26 14:22] LABS: BASOPHILS # (AUTO) 0.1 K/uL (0.0-0.2); BASOPHILS % (AUTO) 2.7 % (0.0-2.0); EOSINOPHILS # (AUTO) 0.1 K/uL (0.0-0.7); EOSINOPHILS % (AUTO) 1.6 % (0.0-6.0); HEMATOCRIT 35 % (39-51); HEMOGLOBIN 11.7 g/dL (13.5-17.5); LYMPHOCYTES # (AUTO) 1.2 K/uL (0.8-4.8); LYMPHOCYTES % (AUTO) 22.7 % (20.0-44.0); MEAN CORPUSCULAR HEMOGLOBIN 33 PG (26.0-33.0); MEAN CORPUSCULAR HGB CONC 34 g/dl (31.0-36.0); MEAN CORPUSCULAR VOLUME 97 fL (80-96); MONOCYTES # (AUTO) 0.8 K/uL (0.1-1.30); MONOCYTES % (AUTO) 15.3 % (2.0-12.0); NEUTROPHILS # (AUTO) 3.1 K/uL (1.8-8.9); NEUTROPHILS % (AUTO) 57.7 % (43.0-81.0); PLATELET COUNT (AUTO) 262 K/uL (150-450); RED BLOOD CELL COUNT(AUTO) 3.56 MIL/uL (4.5-6.0); RED CELL DISTRIBUTION WIDTH 13.8 % (11.5-15.0); WHITE BLOOD COUNT (AUTO) 5.3 K/uL (4.3-11.0)
[2023-01-26 14:54] LABS: LACTIC ACID 1.4 mmol/L (0.4-2.0)
[2023-01-26 15:13] LABS: CALCIUM, SERUM 9.7 mg/dL (8.5-10.1); CARBON DIOXIDE 29 mmol/L (21-32); CHLORIDE 95 mmol/L (98-107); CREATININE 1.1 mg/dL (0.6-1.3); GLUCOSE 106 mg/dL (74-106); POTASSIUM 4.5 mmol/L (3.5-5.1); SODIUM SERUM 130 mmol/L (136-145); UREA NITROGEN, BLOOD 22 mg/dL (7-18)
[2023-01-26 15:19] LABS: ALANINE AMINOTRANSFERASE 12 U/L (12-78); ALBUMIN 2.4 g/dL (3.4-5.0); ALKALINE PHOSPHATASE 63 U/L (46-116); ASPARTATE AMINOTRANSFERASE 9 U/L (15-37); BILIRUBIN,DIRECT 0.1 mg/dL (0.0-0.2); BILIRUBIN,TOTAL 0.3 mg/dL (0.2-1.0); TOTAL PROTEIN, SERUM 9.7 g/dL (6.4-8.2)
[2023-01-26 15:21] LABS: APPEARANCE,URINE SLIGHTLY CLOUDY (CLEAR); BILIRUBIN,URINE NEGATIVE (NEGATIVE); BLOOD, URINE 1+ Ery/uL (NEGATIVE); COLOR,URINE YELLOW (YELLOW); KETONES,URINE NEGATIVE (NEGATIVE); LEUKOCYTE ESTERASE ,URINE 1+ (NEGATIVE); NITRITE, URINE POSITIVE (NEGATIVE); PH,URINE 6.5 (5.0-8.0); PROTEIN,URINE NEGATIVE (NEGATIVE); UGLUCOSE NEGATIVE (NEGATIVE)
[2023-01-26 15:23] LABS: INR 1.15 (0.91-1.10); PARTIAL THROMBOPLASTIN TIME 36.3 SEC (24.3-34.3); PROTHROMBIN TIME 12.1 SECS (9.2-11.1)
[2023-01-26 15:31] LABS: ADD URINE CULTURE YES; BACTERIA,URINE 1+ /HPF (None Seen); SQUAMOUS EPITHELIAL CELL,UR 0-2 /HPF (None Seen); URINE AMORPHOUS URATE Few /HPF (None Seen)
[2023-01-26] MEDS ORDERED: CEFTRIAXONE 1GM BAG (ER ONLY) 50 ML IV ONE (15:59)
[2023-01-26] MEDS ORDERED: CEFTRIAXONE 1GM BAG (ER ONLY) 1 GM/50 ML PIGGYBACK IV ONE (16:00)
[2023-01-26] MEDS ORDERED: FLUPHENAZINE HCL 5 MG TABLET PO SCH (17:00)
[2023-01-26] MEDS ORDERED: MAGNESIUM HYDROXIDE 30 ML UDC PO PRN (17:00)
[2023-01-26] MEDS ORDERED: MAG HYDROX/AL HYDROX/SIMETH 30 ML UDC PO PRN ×2 (17:00)
[2023-01-26] MEDS ORDERED: HYDROCODONE/APAP 5/325MG TABLET PO PRN (17:00)
[2023-01-26] MEDS ORDERED: Z GUARD REMEDY 4 OZ OINT TP PRN (17:00)
[2023-01-26] MEDS ORDERED: DOCUSATE SODIUM 100 MG CAPSULE PO SCH (17:00)
[2023-01-26] MEDS ORDERED: IV 1/2NS 1000 ML 1,000 ML IV PRN (17:00)
[2023-01-26] MEDS ORDERED: ACETAMINOPHEN 325 MG TABLET PO PRN ×2 (17:00)
[2023-01-26] MEDS ORDERED: ONDANSETRON HCL/PF 4 MG/2 ML VIAL IVP PRN (17:00)
[2023-01-26] MEDS: BENZTROPINE MESYLATE (1 MG) 1 MG TABLET PO SCH (17:57)
[2023-01-26] MEDS: DIVALPROEX SODIUM 250 MG TABLET.DR PO SCH (17:57)
[2023-01-26] MEDS: DOCUSATE SODIUM 100 MG CAPSULE PO SCH (17:57)
[2023-01-26] MEDS: APIXABAN 5 MG TABLET PO SCH (17:59)
[2023-01-26 18:33] LABS: ANISOCYTOSIS 1+; LYMPHOCYTES % (MANUAL) 27 % (16-48); MONOCYTES % (MANUAL) 8 % (0-11.0); NEUTROPHILS % (MANUAL) 65 (42-76); PLATELET ESTIMATE ADEQUATE; ROULEAUX 1+
[2023-01-26 19:29] VITALS: BP 130/73; TEMP 98.7; O2SAT 97
[2023-01-26 20:00] VITALS: BP 115/72; TEMP 97.7; O2SAT 96
[2023-01-26] MEDS ORDERED: FLUPHENAZINE HCL 10 MG TABLET PO SCH ×2 (20:30)
[2023-01-26] MEDS: METOPROLOL TARTRATE 25 MG TABLET PO SCH (21:00)
[2023-01-26] MEDS: ATORVASTATIN 10 MG TABLET PO SCH (21:28)
[2023-01-26] MEDS: TAMSULOSIN 0.4 MG CAP.SR.24H PO SCH (21:28)
[2023-01-26] MEDS: SENNOSIDES 8.6 MG TABLET PO SCH (21:28)
[2023-01-27 06:51] LABS: BASOPHILS % (AUTO) 0.4 % (0.0-2.0); EOSINOPHILS # (AUTO) 0.1 K/uL (0.0-0.7); EOSINOPHILS % (AUTO) 2.4 % (0.0-6.0); HEMATOCRIT 31 % (39-51); HEMOGLOBIN 10.5 g/dL (13.5-17.5); LYMPHOCYTES # (AUTO) 1.5 K/uL (0.8-4.8); LYMPHOCYTES % (AUTO) 31.9 % (20.0-44.0); MEAN CORPUSCULAR HEMOGLOBIN 33 PG (26.0-33.0); MEAN CORPUSCULAR HGB CONC 34 g/dl (31.0-36.0); MEAN CORPUSCULAR VOLUME 97 fL (80-96); NEUTROPHILS # (AUTO) 2.1 K/uL (1.8-8.9); NEUTROPHILS % (AUTO) 44.3 % (43.0-81.0); PLATELET COUNT (AUTO) 202 K/uL (150-450); RED BLOOD CELL COUNT(AUTO) 3.22 MIL/uL (4.5-6.0); RED CELL DISTRIBUTION WIDTH 13.6 % (11.5-15.0); WHITE BLOOD COUNT (AUTO) 4.7 K/uL (4.3-11.0)
[2023-01-27 07:13] LABS: ALBUMIN 1.9 g/dL (3.4-5.0); BILIRUBIN,TOTAL 0.3 mg/dL (0.2-1.0); CALCIUM, SERUM 9.1 mg/dL (8.5-10.1); MAGNESIUM 1.8 mg/dL (1.8-2.4); PHOSPHORUS 3.9 mg/dL (2.5-4.9); POTASSIUM 4.4 mmol/L (3.5-5.1); TOTAL PROTEIN, SERUM 7.9 g/dL (6.4-8.2)
[2023-01-27] MEDS: METOPROLOL TARTRATE 25 MG TABLET PO SCH ×2 (09:00→21:14)
[2023-01-27] MEDS: DOCUSATE SODIUM 100 MG CAPSULE PO SCH ×2 (09:36→16:20)
[2023-01-27] MEDS: FERROUS SULFATE (325 MG) 325 MG/TAB TABLET PO SCH (09:36)
[2023-01-27] MEDS: BENZTROPINE MESYLATE (1 MG) 1 MG TABLET PO SCH ×2 (09:36→16:20)
[2023-01-27] MEDS: DIVALPROEX SODIUM 250 MG TABLET.DR PO SCH ×2 (09:36→16:21)
[2023-01-27] MEDS: AMLODIPINE BESYLATE 10 MG TABLET PO SCH (09:39)
[2023-01-27] MEDS: PAROXETINE HCL 20 MG TABLET PO SCH (09:39)
[2023-01-27] MEDS: BENAZEPRIL HCL 20 MG TABLET PO SCH (09:39)
[2023-01-27] MEDS: ASCORBIC ACID 500 MG TABLET PO SCH (09:40)
[2023-01-27] MEDS: FLUPHENAZINE HCL 10 MG TABLET PO SCH ×2 (09:40→16:21)
[2023-01-27] MEDS: APIXABAN 5 MG TABLET PO SCH ×2 (09:44→16:25)
[2023-01-27] MEDS ORDERED: IV NS 0.9% 100 ML IV SCH (10:00)
[2023-01-27 11:18] VITALS: BP 118/69; TEMP 97.7; O2SAT 96
[2023-01-27] MEDS: IV NS 0.9% 1,000 ML BAG IV SCH (11:42)
[2023-01-27] MEDS: CEFTRIAXONE 1 G in IV D5W 50 ML IV SCH (15:17)
[2023-01-27 16:00] VITALS: BP 103/67; TEMP 97.5; O2SAT 99
[2023-01-27 16:37] LABS: CALCIUM, SERUM 8.8 mg/dL (8.5-10.1); MAGNESIUM 1.8 mg/dL (1.8-2.4); PHOSPHORUS 3.8 mg/dL (2.5-4.9); POTASSIUM 4.6 mmol/L (3.5-5.1)
[2023-01-27 16:46] LABS: THYROID STIMULATING HORMONE 7.041 uIU/mL (0.358-3.74); URIC ACID 3.6 mg/dL (2.6-7.2)
[2023-01-27 20:00] VITALS: BP 111/67; TEMP 98.2; O2SAT 97
[2023-01-27] MEDS: SENNOSIDES 8.6 MG TABLET PO SCH (21:13)
[2023-01-27] MEDS: TAMSULOSIN 0.4 MG CAP.SR.24H PO SCH (21:13)
[2023-01-27] MEDS: ATORVASTATIN 10 MG TABLET PO SCH (21:13)
[2023-01-28 06:36] LABS: BASOPHILS % (AUTO) 0.2 % (0.0-2.0); EOSINOPHILS # (AUTO) 0.1 K/uL (0.0-0.7); EOSINOPHILS % (AUTO) 3.2 % (0.0-6.0); HEMATOCRIT 32 % (39-51); LYMPHOCYTES # (AUTO) 1.2 K/uL (0.8-4.8); LYMPHOCYTES % (AUTO) 26.8 % (20.0-44.0); MEAN CORPUSCULAR HEMOGLOBIN 33 PG (26.0-33.0); MEAN CORPUSCULAR HGB CONC 34 g/dl (31.0-36.0); MEAN CORPUSCULAR VOLUME 96 fL (80-96); MONOCYTES # (AUTO) 0.8 K/uL (0.1-1.30); MONOCYTES % (AUTO) 18.2 % (2.0-12.0); NEUTROPHILS # (AUTO) 2.3 K/uL (1.8-8.9); NEUTROPHILS % (AUTO) 51.6 % (43.0-81.0); PLATELET COUNT (AUTO) 201 K/uL (150-450); RED BLOOD CELL COUNT(AUTO) 3.37 MIL/uL (4.5-6.0); RED CELL DISTRIBUTION WIDTH 13.5 % (11.5-15.0); WHITE BLOOD COUNT (AUTO) 4.5 K/uL (4.3-11.0)
[2023-01-28 06:45] LABS: POTASSIUM 4.4 mmol/L (3.5-5.1)
[2023-01-28 07:28] LABS: ANISOCYTOSIS 1+; BAND % (MANUAL) 1 % (0.0-5.0); EOSINOPHILS % (MANUAL) 2 % (0-4); LYMPHOCYTES % (MANUAL) 32 % (16-48); MONOCYTES % (MANUAL) 14 % (0-11.0); NEUTROPHILS % (MANUAL) 51 (42-76); PLATELET ESTIMATE ADEQUATE
[2023-01-28 07:30] VITALS: BP 124/69; TEMP 97.7; O2SAT 100
[2023-01-28] MEDS: BENAZEPRIL HCL 20 MG TABLET PO SCH (08:29)
[2023-01-28] MEDS: AMLODIPINE BESYLATE 10 MG TABLET PO SCH (08:30)
[2023-01-28] MEDS: ASCORBIC ACID 500 MG TABLET PO SCH (08:30)
[2023-01-28] MEDS: BENZTROPINE MESYLATE (1 MG) 1 MG TABLET PO SCH ×2 (08:30→18:10)
[2023-01-28] MEDS: PAROXETINE HCL 20 MG TABLET PO SCH (08:30)
[2023-01-28] MEDS: DIVALPROEX SODIUM 250 MG TABLET.DR PO SCH ×2 (08:31→18:11)
[2023-01-28] MEDS: METOPROLOL TARTRATE 25 MG TABLET PO SCH ×2 (08:32→21:37)
[2023-01-28] MEDS: APIXABAN 5 MG TABLET PO SCH ×2 (08:41→18:13)
[2023-01-28] MEDS: DOCUSATE SODIUM 100 MG CAPSULE PO SCH ×2 (08:45→18:11)
[2023-01-28] MEDS: FLUPHENAZINE HCL 10 MG TABLET PO SCH ×2 (08:45→18:11)
[2023-01-28] MEDS: FERROUS SULFATE (325 MG) 325 MG/TAB TABLET PO SCH (08:45)
[2023-01-28] MEDS: CEFTRIAXONE 1 G in IV D5W 50 ML IV SCH (15:29)
[2023-01-28 16:00] VITALS: BP 114/76; TEMP 97.6; O2SAT 98
[2023-01-28 20:00] VITALS: BP 147/100; TEMP 98.1; O2SAT 98
[2023-01-28] MEDS: SENNOSIDES 8.6 MG TABLET PO SCH (21:37)
[2023-01-28] MEDS: ATORVASTATIN 10 MG TABLET PO SCH (21:37)
[2023-01-28] MEDS: TAMSULOSIN 0.4 MG CAP.SR.24H PO SCH (21:37)
[2023-01-29] MEDS: IV NS 0.9% 1,000 ML BAG IV SCH (05:04)
[2023-01-29 06:52] LABS: BASOPHILS % (AUTO) 0.1 % (0.0-2.0); EOSINOPHILS % (AUTO) 0.5 % (0.0-6.0); HEMATOCRIT 33 % (39-51); LYMPHOCYTES # (AUTO) 1.2 K/uL (0.8-4.8); LYMPHOCYTES % (AUTO) 14.9 % (20.0-44.0); MEAN CORPUSCULAR HEMOGLOBIN 32 PG (26.0-33.0); MEAN CORPUSCULAR HGB CONC 34 g/dl (31.0-36.0); MEAN CORPUSCULAR VOLUME 96 fL (80-96); MONOCYTES # (AUTO) 1.4 K/uL (0.1-1.30); MONOCYTES % (AUTO) 17.2 % (2.0-12.0); NEUTROPHILS # (AUTO) 5.4 K/uL (1.8-8.9); NEUTROPHILS % (AUTO) 67.3 % (43.0-81.0); PLATELET COUNT (AUTO) 228 K/uL (150-450); RED CELL DISTRIBUTION WIDTH 13.3 % (11.5-15.0)
[2023-01-29 07:00] VITALS: BP 117/77; TEMP 98.2; O2SAT 90
[2023-01-29 07:04] LABS: CALCIUM, SERUM 9.6 mg/dL (8.5-10.1); POTASSIUM 4.5 mmol/L (3.5-5.1)
[2023-01-29] MEDS: BENZTROPINE MESYLATE (1 MG) 1 MG TABLET PO SCH (09:25)
[2023-01-29] MEDS: DOCUSATE SODIUM 100 MG CAPSULE PO SCH (09:26)
[2023-01-29] MEDS: BENAZEPRIL HCL 20 MG TABLET PO SCH (09:27)
[2023-01-29] MEDS: DIVALPROEX SODIUM 250 MG TABLET.DR PO SCH (09:28)
[2023-01-29] MEDS: METOPROLOL TARTRATE 25 MG TABLET PO SCH (09:29)
[2023-01-29 09:30] VITALS: BP 117/77
[2023-01-29] MEDS: AMLODIPINE BESYLATE 10 MG TABLET PO SCH (09:30)
[2023-01-29] MEDS: FLUPHENAZINE HCL 10 MG TABLET PO SCH (09:31)
[2023-01-29] MEDS: FERROUS SULFATE (325 MG) 325 MG/TAB TABLET PO SCH (09:31)
[2023-01-29] MEDS: ASCORBIC ACID 500 MG TABLET PO SCH (09:31)
[2023-01-29] MEDS: APIXABAN 5 MG TABLET PO SCH (09:35)
[2023-01-29] MEDS ORDERED: CIPR-262 PO (09:36)
[2023-01-29] MEDS: PAROXETINE HCL 20 MG TABLET PO SCH (09:38)
[2023-01-29 10:19] LABS: LYMPHOCYTES % (MANUAL) 12 % (16-48); MONOCYTES % (MANUAL) 15 % (0-11.0); NEUTROPHILS % (MANUAL) 73 (42-76); PLATELET ESTIMATE ADEQUATE
[2023-01-29] MEDS: CEFTRIAXONE 1 G in IV D5W 50 ML IV SCH (15:00)
== END 2023-01-29 14:55 | DRG 689 ==
LOC: ER 13:35 → MED 17:00
PROVIDERS: ADMIT Internal Medicine; ATTEND Nurse Practitioner Family
DX: N39.0 Urinary tract infection, site not specified (principal); G93.41 Metabolic encephalopathy; E87.1 Hypo-osmolality and hyponatremia; R62.7 Adult failure to thrive; I10 Essential (primary) hypertension; D63.8 Anemia in other chronic diseases classified elsewhere; E78.5 Hyperlipidemia, unspecified; F20.9 Schizophrenia, unspecified; G40.909 Epilepsy, unspecified, not intractable, without status epilepticus; Z79.01 Long term (current) use of anticoagulants; Z79.899 Other long term (current) drug therapy; Z87.440 Personal history of urinary (tract) infections; Z88.0 Allergy status to penicillin; Z96.651 Presence of right artificial knee joint; N40.1 Benign prostatic hyperplasia with lower urinary tract symptoms; R53.1 Weakness; M19.90 Unspecified osteoarthritis, unspecified site; F99 Mental disorder, not otherwise specified; G20.A1 Parkinson's disease without dyskinesia, without mention of fluctuations; F41.9 Anxiety disorder, unspecified
CPT/HCPCS: 36415; 71045-TC; 80048-TC; 80053-TC; 80076-TC; 81001; 82533; 83605-TC; 83735-TC; 84100-TC; 84443-TC; 84484-TC; 84550-TC; 85025-TC; 85730-TC; 87040-TC; 87086-TC; 97110-TC; 97116-TC; 97530-TC; A4223; G0378; J0696; J3490; J7030; J7060

== ENCOUNTER 2023-07-14 15:18 | Inpatient (IN) | payer MEDICARE, OTHER ==
[~2023-07-14] VITALS: Ht 185.4 cm; Wt 91.2 kg
[~2023-07-14 15:18] MED LIST changes: +AMIN30LI2 PO; +APIX5TAB PO; +CIPR-262 PO; -ENOX40DI SQ; +FERR325T23 PO; +HYDR-4303 PO; -LORA-259 PO; +MULT-447 PO; +NALO4SPR NS; -TEMA15CA PO
[2023-07-14 16:31] LABS: BASOPHILS % (AUTO) 0.6 % (0.0-2.0); EOSINOPHILS % (AUTO) 0.6 % (0.0-6.0); HEMATOCRIT 28 % (39-51); HEMOGLOBIN 9.4 g/dL (13.5-17.5); LYMPHOCYTES # (AUTO) 0.5 K/uL (0.8-4.8); LYMPHOCYTES % (AUTO) 13.1 % (20.0-44.0); MEAN CORPUSCULAR HEMOGLOBIN 31 PG (26.0-33.0); MEAN CORPUSCULAR HGB CONC 33 g/dl (31.0-36.0); MEAN CORPUSCULAR VOLUME 93 fL (80-96); MONOCYTES # (AUTO) 1.2 K/uL (0.1-1.30); MONOCYTES % (AUTO) 28.5 % (2.0-12.0); NEUTROPHILS # (AUTO) 2.4 K/uL (1.8-8.9); NEUTROPHILS % (AUTO) 57.2 % (43.0-81.0); PLATELET COUNT (AUTO) 203 K/uL (150-450); RED BLOOD CELL COUNT(AUTO) 3.07 MIL/uL (4.5-6.0); RED CELL DISTRIBUTION WIDTH 15.5 % (11.5-15.0); WHITE BLOOD COUNT (AUTO) 4.2 K/uL (4.3-11.0)
[2023-07-14 16:40] LABS: CALCIUM, SERUM 8.9 mg/dL (8.5-10.1); CARBON DIOXIDE 27 mmol/L (21-32); CHLORIDE 95 mmol/L (98-107); CREATININE 1.1 mg/dL (0.6-1.3); GLUCOSE 122 mg/dL (74-106); POTASSIUM 4.3 mmol/L (3.5-5.1); SODIUM SERUM 127 mmol/L (136-145); UREA NITROGEN, BLOOD 25 mg/dL (7-18)
[2023-07-14 16:45] LABS: INR 1.18 (0.91-1.10); PARTIAL THROMBOPLASTIN TIME 35.9 SEC (24.3-34.3)
[2023-07-14 16:47] LABS: ALANINE AMINOTRANSFERASE 11 U/L (12-78); ALBUMIN 1.9 g/dL (3.4-5.0); ALCOHOL, BLOOD < 3 mg/dL (0-10); ALKALINE PHOSPHATASE 45 U/L (46-116); ASPARTATE AMINOTRANSFERASE 13 U/L (15-37); BILIRUBIN,DIRECT 0.1 mg/dL (0.0-0.2); BILIRUBIN,TOTAL 0.2 mg/dL (0.2-1.0); TOTAL PROTEIN, SERUM 9.6 g/dL (6.4-8.2)
[2023-07-14] MEDS ORDERED: ACET-868 PO (16:53)
[2023-07-14] MEDS ORDERED: LEVO50TA8 PO (16:53)
[2023-07-14 16:59] LABS: SALICYLATE 1.9 mg/dL (2.8-20.0)
[2023-07-14 17:08] LABS: SERUM AMMONIA 10 umol/L (11-32)
[2023-07-14 17:20] LABS: THYROID STIMULATING HORMONE 7.221 uIU/mL (0.358-3.74)
[2023-07-14 19:15] LABS: EOSINOPHILS % (MANUAL) 1 % (0-4); LYMPHOCYTES % (MANUAL) 18 % (16-48); MONOCYTES % (MANUAL) 23 % (0-11.0); NEUTROPHILS % (MANUAL) 58 (42-76)
[2023-07-14 19:17] LABS: ANISOCYTOSIS 1+; PLATELET ESTIMATE ADEQUATE
[2023-07-14 20:45] VITALS: BP 124/73; TEMP 98.3; O2SAT 99
[2023-07-14] MEDS ORDERED: LORAZEPAM INJ 2 MG/ML VIAL IV PRN (23:00)
[2023-07-14] MEDS ORDERED: ONDANSETRON HCL/PF 4 MG/2 ML VIAL IVP PRN (23:00)
[2023-07-14] MEDS ORDERED: ACETAMINOPHEN 325 MG TABLET PO PRN (23:00)
[2023-07-14] MEDS ORDERED: Z GUARD REMEDY 4 OZ OINT TP PRN (23:00)
[2023-07-15] MEDS: IV NS 0.9% 1,000 ML IV PRN (01:40)
[2023-07-15 06:39] LABS: BASOPHILS % (AUTO) 0.6 % (0.0-2.0); EOSINOPHILS % (AUTO) 0.4 % (0.0-6.0); HEMATOCRIT 26 % (39-51); HEMOGLOBIN 8.8 g/dL (13.5-17.5); LYMPHOCYTES # (AUTO) 0.8 K/uL (0.8-4.8); LYMPHOCYTES % (AUTO) 22.1 % (20.0-44.0); MEAN CORPUSCULAR HEMOGLOBIN 31 PG (26.0-33.0); MEAN CORPUSCULAR HGB CONC 33 g/dl (31.0-36.0); MEAN CORPUSCULAR VOLUME 94 fL (80-96); MONOCYTES # (AUTO) 1.2 K/uL (0.1-1.30); NEUTROPHILS # (AUTO) 1.5 K/uL (1.8-8.9); NEUTROPHILS % (AUTO) 43.9 % (43.0-81.0); PLATELET COUNT (AUTO) 178 K/uL (150-450); RED BLOOD CELL COUNT(AUTO) 2.79 MIL/uL (4.5-6.0); WHITE BLOOD COUNT (AUTO) 3.5 K/uL (4.3-11.0)
[2023-07-15 06:55] LABS: CALCIUM, SERUM 8.8 mg/dL (8.5-10.1); MAGNESIUM 1.8 mg/dL (1.8-2.4); PHOSPHORUS 3.6 mg/dL (2.5-4.9); POTASSIUM 4.3 mmol/L (3.5-5.1)
[2023-07-15 08:00] VITALS: BP 131/73; TEMP 98.4; O2SAT 94
[2023-07-15] MEDS: BENZTROPINE MESYLATE (1 MG) 1 MG TABLET PO SCH (08:52)
[2023-07-15] MEDS: PANTOPRAZOLE 40 MG TABLET.DR PO SCH (08:52)
[2023-07-15] MEDS: DOCUSATE SODIUM 100 MG CAPSULE PO SCH (08:52)
[2023-07-15] MEDS: FERROUS SULFATE (325 MG) 325 MG/TAB TABLET PO SCH (08:52)
[2023-07-15] MEDS: LEVOTHYROXINE SODIUM 75 MCG TABLET PO SCH (08:52)
[2023-07-15] MEDS: MULTIVIT W/MINERALS 1 TAB TABLET PO SCH (08:52)
[2023-07-15] MEDS: PAROXETINE HCL 20 MG TABLET PO SCH (08:52)
[2023-07-15] MEDS: DIVALPROEX SODIUM 250 MG TABLET.DR PO SCH (08:52)
[2023-07-15] MEDS: ASCORBIC ACID 500 MG TABLET PO SCH (08:52)
[2023-07-15] MEDS: METOPROLOL TARTRATE 25 MG TABLET PO SCH (08:53)
[2023-07-15] MEDS: CYANOCOBALAMIN 500 MCG TABLET PO SCH (08:53)
[2023-07-15] MEDS: APIXABAN 5 MG TABLET PO SCH (08:54)
[2023-07-15] MEDS: FLUPHENAZINE HCL 10 MG TABLET PO SCH (08:55)
[2023-07-15] MEDS: SOD FERRIC GLUC 125 MG in IV NS 0.9% 100 ML IV SCH (14:13)
[2023-07-15 15:15] LABS: LYMPHOCYTES % (MANUAL) 25 % (16-48); MONOCYTES % (MANUAL) 30 % (0-11.0); NEUTROPHILS % (MANUAL) 45 (42-76)
[2023-07-15 15:16] LABS: ANISOCYTOSIS 1+; PLATELET ESTIMATE ADEQUATE
[2023-07-15 16:00] VITALS: BP 145/71; TEMP 97.7; O2SAT 96
[2023-07-15 20:00] VITALS: BP 130/66; TEMP 97.5; O2SAT 99
[2023-07-15] MEDS: TAMSULOSIN 0.4 MG CAP.SR.24H PO SCH (21:29)
[2023-07-15] MEDS: ATORVASTATIN 10 MG TABLET PO SCH (21:29)
[2023-07-15] MEDS: SENNOSIDES 8.6 MG TABLET PO SCH (21:29)
[2023-07-16 07:09] LABS: BASOPHILS % (AUTO) 0.7 % (0.0-2.0); EOSINOPHILS % (AUTO) 0.9 % (0.0-6.0); HEMATOCRIT 24 % (39-51); HEMOGLOBIN 7.9 g/dL (13.5-17.5); LYMPHOCYTES # (AUTO) 0.8 K/uL (0.8-4.8); LYMPHOCYTES % (AUTO) 25.8 % (20.0-44.0); MEAN CORPUSCULAR HEMOGLOBIN 32 PG (26.0-33.0); MEAN CORPUSCULAR HGB CONC 34 g/dl (31.0-36.0); MEAN CORPUSCULAR VOLUME 94 fL (80-96); MONOCYTES # (AUTO) 0.7 K/uL (0.1-1.30); MONOCYTES % (AUTO) 23.8 % (2.0-12.0); NEUTROPHILS # (AUTO) 1.5 K/uL (1.8-8.9); NEUTROPHILS % (AUTO) 48.8 % (43.0-81.0); PLATELET COUNT (AUTO) 155 K/uL (150-450); RED CELL DISTRIBUTION WIDTH 15.5 % (11.5-15.0)
[2023-07-16 07:34] LABS: CARBON DIOXIDE 17 mmol/L (21-32); CHLORIDE 114 mmol/L (98-107); CREATININE 0.5 mg/dL (0.6-1.3); PHOSPHORUS 2.5 mg/dL (2.5-4.9); POTASSIUM 3.2 mmol/L (3.5-5.1); SODIUM SERUM 140 mmol/L (136-145); UREA NITROGEN, BLOOD 13 mg/dL (7-18)
[2023-07-16 07:46] LABS: THYROID STIMULATING HORMONE 3.471 uIU/mL (0.358-3.74); URIC ACID 3.6 mg/dL (2.6-7.2)
[2023-07-16 08:00] VITALS: BP 116/75; TEMP 97.2; O2SAT 95
[2023-07-16 08:03] LABS: CALCIUM, SERUM 5.6 mg/dL (8.5-10.1); GLUCOSE 46 mg/dL (74-106); MAGNESIUM 1.2 mg/dL (1.8-2.4)
[2023-07-16 09:16] LABS: ANISOCYTOSIS 1+; BASOPHILS % (MANUAL) 0 % (0.0-2.0); EOSINOPHILS % (MANUAL) 0 % (0-4); LYMPHOCYTES % (MANUAL) 28 % (16-48); MONOCYTES % (MANUAL) 21 % (0-11.0); NEUTROPHILS % (MANUAL) 51 (42-76); PLATELET ESTIMATE ADEQUATE
[2023-07-16] MEDS: MAGNESIUM OXIDE 400 MG TABLET PO ONE (09:28)
[2023-07-16] MEDS: POTASSIUM PHOSPHATE MM 7.5 MMOL in IV NS 0.9% 100 ML IV SCH (10:22)
[2023-07-16] MEDS: IV D5/0.45 NACL 1,000 ML IV ONE (10:23)
[2023-07-16] MEDS: POTASSIUM CHLORIDE 20 MEQ TAB.PRT.SR PO SCH (10:23)
[2023-07-16] MEDS: CALCIUM CARBONATE 500 MG TAB.CHEW PO SCH (10:23)
[2023-07-16 16:00] VITALS: BP 121/69; TEMP 98.8; O2SAT 95
[2023-07-16 20:00] VITALS: BP 136/73; TEMP 97.9; O2SAT 94
[2023-07-17 07:10] LABS: BASOPHILS % (AUTO) 0.6 % (0.0-2.0); EOSINOPHILS % (AUTO) 0.8 % (0.0-6.0); HEMATOCRIT 27 % (39-51); HEMOGLOBIN 8.8 g/dL (13.5-17.5); LYMPHOCYTES # (AUTO) 0.9 K/uL (0.8-4.8); LYMPHOCYTES % (AUTO) 31.1 % (20.0-44.0); MEAN CORPUSCULAR HEMOGLOBIN 31 PG (26.0-33.0); MEAN CORPUSCULAR HGB CONC 33 g/dl (31.0-36.0); MEAN CORPUSCULAR VOLUME 94 fL (80-96); MONOCYTES # (AUTO) 0.7 K/uL (0.1-1.30); MONOCYTES % (AUTO) 26.2 % (2.0-12.0); NEUTROPHILS # (AUTO) 1.1 K/uL (1.8-8.9); NEUTROPHILS % (AUTO) 41.3 % (43.0-81.0); PLATELET COUNT (AUTO) 170 K/uL (150-450); RED BLOOD CELL COUNT(AUTO) 2.85 MIL/uL (4.5-6.0); RED CELL DISTRIBUTION WIDTH 15.3 % (11.5-15.0); WHITE BLOOD COUNT (AUTO) 2.8 K/uL (4.3-11.0)
[2023-07-17 07:30] VITALS: BP 143/74; TEMP 97.9; O2SAT 97
[2023-07-17 07:37] LABS: APPEARANCE,URINE TURBID (CLEAR); BILIRUBIN,URINE NEGATIVE (NEGATIVE); BLOOD, URINE 1+ Ery/uL (NEGATIVE); COLOR,URINE DARK YELLOW (YELLOW); KETONES,URINE NEGATIVE (NEGATIVE); LEUKOCYTE ESTERASE ,URINE 3+ (NEGATIVE); NITRITE, URINE NEGATIVE (NEGATIVE); PH,URINE 5.5 (5.0-8.0); PROTEIN,URINE TRACE mg/dl (NEGATIVE); UGLUCOSE NEGATIVE (NEGATIVE)
[2023-07-17 07:39] LABS: ADD URINE CULTURE YES; BACTERIA,URINE Moderate /HPF (None Seen); SQUAMOUS EPITHELIAL CELL,UR Rare /HPF (None Seen); WBC,URINE TOO NUMEROUS TO COUN /HPF (0-3)
[2023-07-17 07:56] LABS: CREATININE, URINE 105.2 MG/DL (30.0-125.0); URINE TOTAL PROTEIN 85.3 mg/dL (0-11.9)
[2023-07-17 07:57] LABS: CALCIUM, SERUM 9.1 mg/dL (8.5-10.1); MAGNESIUM 2.1 mg/dL (1.8-2.4); PHOSPHORUS 3.2 mg/dL (2.5-4.9); POTASSIUM 4.5 mmol/L (3.5-5.1)
[2023-07-17 08:23] LABS: EOSINOPHIL,URINE None Seen
[2023-07-17] MEDS ORDERED: CEPH500C2 PO (09:02)
[2023-07-17 09:14] VITALS: BP 143/74
[2023-07-17 11:41] LABS: NEUTROPHILS % (MANUAL) 52 (42-76)
[2023-07-17 11:42] LABS: BASOPHILS % (MANUAL) 0 % (0.0-2.0); EOSINOPHILS % (MANUAL) 0 % (0-4); LYMPHOCYTES % (MANUAL) 27 % (16-48); MONOCYTES % (MANUAL) 21 % (0-11.0); PLATELET ESTIMATE ADEQUATE
== END 2023-07-17 16:24 | DRG 640 ==
LOC: ER 15:22 → MED 20:23
PROVIDERS: ADMIT Nurse Practitioner Family; ATTEND Internal Medicine
DX: E86.0 Dehydration (principal); E43 Unspecified severe protein-calorie malnutrition; G93.41 Metabolic encephalopathy; D61.818 Other pancytopenia; N39.0 Urinary tract infection, site not specified; N17.9 Acute kidney failure, unspecified; R62.7 Adult failure to thrive; E87.1 Hypo-osmolality and hyponatremia; I11.9 Hypertensive heart disease without heart failure; G20.A1 Parkinson's disease without dyskinesia, without mention of fluctuations; F02.80 Dementia in other diseases classified elsewhere, unspecified severity, without behavioral disturbance, psychotic disturbance, mood disturbance, and anxiety; D50.9 Iron deficiency anemia, unspecified; E78.5 Hyperlipidemia, unspecified; E83.42 Hypomagnesemia; E86.1 Hypovolemia; E87.6 Hypokalemia; E88.09 Other disorders of plasma-protein metabolism, not elsewhere classified; F20.9 Schizophrenia, unspecified; G40.909 Epilepsy, unspecified, not intractable, without status epilepticus; M19.90 Unspecified osteoarthritis, unspecified site; M89.8X9 Other specified disorders of bone, unspecified site; N40.1 Benign prostatic hyperplasia with lower urinary tract symptoms; R13.10 Dysphagia, unspecified; Z66 Do not resuscitate; Z79.01 Long term (current) use of anticoagulants; Z88.0 Allergy status to penicillin; R53.1 Weakness; Z68.26 Body mass index [BMI] 26.0-26.9, adult; E86.9 Volume depletion, unspecified
CPT/HCPCS: 36415; 70450-TC; 71045-TC; 80048-TC; 80076-TC; 81001; 82140-TC; 82570-TC; 82607-TC; 82728-TC; 82962-TC; 83540-TC; 83735-TC; 83935-TC; 84100-TC; 84300-TC; 84443-TC; 84484-TC; 84550-TC; 85025-TC; 85730-TC; 87081-TC; 97110-TC; 97112-TC; 97530-TC; A4223; G0378; G0480; J2916; J3490; J7030; J7042

== ENCOUNTER 2025-02-03 11:21 | Inpatient (IN) | payer MEDICARE, OTHER ==
[~2025-02-03] VITALS: Ht 177.8 cm; Wt 92.1 kg
[~2025-02-03 11:21] MED LIST changes: -AMIN30LI2 PO; -AMLO-213 PO; -BENA40TA8 PO; +CEPH500C2 PO; -CIPR-262 PO; +LEVO50TA8 PO
[2025-02-03 11:56] LABS: PLATELET COUNT (AUTO) 68 K/uL (150-450); RED BLOOD CELL COUNT(AUTO) 2.80 MIL/uL (4.5-6.0); RED CELL DISTRIBUTION WIDTH 19.6 % (11.5-15.0); WHITE BLOOD COUNT (AUTO) 4.2 K/uL (4.3-11.0)
[2025-02-03 12:02] LABS: CALCIUM, SERUM 9.2 mg/dL (8.5-10.1); CREATININE 1.6 mg/dL (0.6-1.3); SODIUM SERUM 134 mmol/L (136-145); UREA NITROGEN, BLOOD 33 mg/dL (7-18)
[2025-02-03 12:27] LABS: APPEARANCE,URINE CLEAR (CLEAR); BLOOD, URINE Trace-intact Ery/uL (NEGATIVE); LEUKOCYTE ESTERASE ,URINE Trace (NEGATIVE); UGLUCOSE Negative (NEGATIVE)
[2025-02-03 12:28] LABS: NITRITE, URINE POSITIVE (NEGATIVE)
[2025-02-03 12:33] LABS: ADD URINE CULTURE YES; SQUAMOUS EPITHELIAL CELL,UR Few /HPF (None Seen)
[2025-02-03 12:54] LABS: LYMPHOCYTES % (MANUAL) 26 % (16-48); MONOCYTES % (MANUAL) 7 % (0-11.0); NEUTROPHILS % (MANUAL) 67 (42-76)
[2025-02-03 12:55] LABS: PLATELET ESTIMATE DECREASED
[2025-02-03] MEDS: IV NS 0.9% 1,000 ML BAG IV ONE (13:10)
[2025-02-03] MEDS: DILTIAZEM HCL 25 MG IV IVP ONE (13:15)
[2025-02-03] MEDS: LEVOFLOXACIN 750 MG /D5W 150ML PIGGYBACK IV ONE (13:30)
[2025-02-03] MEDS ORDERED: Z GUARD REMEDY 4 OZ OINT TP PRN (14:00)
[2025-02-03] MEDS ORDERED: MAGNESIUM HYDROXIDE 30 ML UDC PO PRN (14:00)
[2025-02-03] MEDS ORDERED: ACETAMINOPHEN 325 MG TABLET PO PRN (14:00)
[2025-02-03] MEDS ORDERED: MAG HYDROX/AL HYDROX/SIMETH 30 ML UDC PO PRN (14:00)
[2025-02-03] MEDS ORDERED: ZOLPIDEM TARTRATE 5 MG TABLET PO PRN (14:00)
[2025-02-03] MEDS ORDERED: ONDANSETRON HCL/PF 4 MG/2 ML VIAL IVP PRN (14:00)
[2025-02-03 15:24] LABS: LDL 19 mg/dL (0-99)
[2025-02-03 16:13] VITALS: BP 146/92; TEMP 98.2; O2SAT 96
[2025-02-03] MEDS: PERMETHRIN 5% CRM 60 GM TUBE TP ONE (16:22)
[2025-02-03] MEDS: CEFTRIAXONE 1 G in IV D5W 50 ML IV SCH (16:22)
[2025-02-03] MEDS: IV D5/ 0.9% NACL 1,000 ML IV PRN (16:59)
[2025-02-04] MEDS: PANTOPRAZOLE 40 MG TABLET.DR PO SCH (07:30)
[2025-02-04 07:43] LABS: CALCIUM, SERUM 9.3 mg/dL (8.5-10.1); CREATININE 1.5 mg/dL (0.6-1.3); PHOSPHORUS 3.2 mg/dL (2.5-4.9); SODIUM SERUM 139.0 mmol/L (136-145); UREA NITROGEN, BLOOD 26.0 mg/dL (7-18)
[2025-02-04 08:00] VITALS: BP 109/75; TEMP 98.4; O2SAT 95
[2025-02-04 08:09] LABS: PLATELET COUNT (AUTO) 51 K/uL (150-450); RED BLOOD CELL COUNT(AUTO) 2.48 MIL/uL (4.5-6.0); RED CELL DISTRIBUTION WIDTH 19.5 % (11.5-15.0); WHITE BLOOD COUNT (AUTO) 2.7 K/uL (4.3-11.0)
[2025-02-04] MEDS ORDERED: LEVO75TA7 PO (09:31)
[2025-02-04] MEDS ORDERED: PARO10TA4 PO (09:31)
[2025-02-04] MEDS ORDERED: PIMA34CA PO (09:31)
[2025-02-04 11:00] LABS: LYMPHOCYTES % (MANUAL) 24 % (16-48); MONOCYTES % (MANUAL) 5 % (0-11.0); NEUTROPHILS % (MANUAL) 71 (42-76); PLATELET ESTIMATE DECREASED
[2025-02-04 12:00] VITALS: BP 128/89; TEMP 97.9; O2SAT 99
[2025-02-04 13:52] LABS: APPEARANCE,URINE SLIGHTLY CLOUDY (CLEAR); BLOOD, URINE 1+ Ery/uL (NEGATIVE); LEUKOCYTE ESTERASE ,URINE 2+ (NEGATIVE); NITRITE, URINE POSITIVE (NEGATIVE); UGLUCOSE NEGATIVE (NEGATIVE)
[2025-02-04 13:55] LABS: ADD URINE CULTURE YES; CREATININE, URINE 122.4 MG/DL (30.0-125.0); URINE SODIUM, RANDOM 141.0 mmol/l (40-220); URINE TOTAL PROTEIN 89.3 mg/dL (0-11.9)
[2025-02-04 13:56] LABS: SQUAMOUS EPITHELIAL CELL,UR None Seen /HPF (None Seen)
[2025-02-04 14:51] LABS: EOSINOPHIL,URINE None Seen
[2025-02-04 16:00] VITALS: BP 131/77; TEMP 97.5; O2SAT 95
[2025-02-04 20:00] VITALS: BP 130/94; TEMP 97.5; O2SAT 99
[2025-02-05] VITALS: BP 108/82; TEMP 97.5; TEMP 98.6; O2SAT 94
[2025-02-05 04:53] VITALS: BP 134/80; TEMP 97.9; O2SAT 94
[2025-02-05 05:03] VITALS: BP 134/80; TEMP 97.9; O2SAT 94
[2025-02-05 07:51] LABS: RED BLOOD CELL COUNT(AUTO) 2.42 MIL/uL (4.5-6.0); RED CELL DISTRIBUTION WIDTH 19.7 % (11.5-15.0); WHITE BLOOD COUNT (AUTO) 2.5 K/uL (4.3-11.0)
[2025-02-05 08:00] VITALS: BP 132/95; TEMP 97.7; O2SAT 92
[2025-02-05 08:02] LABS: ASPARTATE AMINOTRANSFERASE 11 U/L (15-37); CALCIUM, SERUM 8.6 mg/dL (8.5-10.1); CREATININE 1.4 mg/dL (0.6-1.3); PHOSPHORUS 3.3 mg/dL (2.5-4.9); SODIUM SERUM 141 mmol/L (136-145); TOTAL PROTEIN, SERUM 8.4 g/dL (6.4-8.2); UREA NITROGEN, BLOOD 24 mg/dL (7-18)
[2025-02-05 08:03] LABS: CREATINE KINASE, TOTAL 17 U/L (39-308)
[2025-02-05 08:08] LABS: PLATELET COUNT (AUTO) 49 K/uL (150-450)
[2025-02-05 08:48] LABS: EOSINOPHILS % (MANUAL) 1 % (0-4); LYMPHOCYTES % (MANUAL) 25 % (16-48); MONOCYTES % (MANUAL) 14 % (0-11.0); NEUTROPHILS % (MANUAL) 60 (42-76); PLATELET ESTIMATE DECREASED
[2025-02-05 16:10] VITALS: BP 126/78; TEMP 98.6; O2SAT 94
[2025-02-05 20:00] VITALS: BP 140/94; TEMP 97.5; TEMP 98.6; O2SAT 93
[2025-02-06] VITALS: BP 122/78; TEMP 97.9; O2SAT 94
[2025-02-06 04:00] VITALS: BP 137/99; TEMP 98.1; O2SAT 94
[2025-02-06 04:53] VITALS: BP 140/99; TEMP 98.3; O2SAT 93
[2025-02-06 07:30] VITALS: BP 126/92; TEMP 97.5; O2SAT 99
[2025-02-06 07:50] LABS: PLATELET COUNT (AUTO) 62 K/uL (150-450); RED BLOOD CELL COUNT(AUTO) 2.49 MIL/uL (4.5-6.0); RED CELL DISTRIBUTION WIDTH 19.2 % (11.5-15.0); WHITE BLOOD COUNT (AUTO) 2.9 K/uL (4.3-11.0)
[2025-02-06 08:14] LABS: ASPARTATE AMINOTRANSFERASE 15 U/L (15-37); CALCIUM, SERUM 9.0 mg/dL (8.5-10.1); CREATININE 1.2 mg/dL (0.6-1.3); PHOSPHORUS 2.9 mg/dL (2.5-4.9); SODIUM SERUM 140 mmol/L (136-145); TOTAL PROTEIN, SERUM 9.1 g/dL (6.4-8.2); UREA NITROGEN, BLOOD 22 mg/dL (7-18)
[2025-02-06 09:33] LABS: EOSINOPHILS % (MANUAL) 2 % (0-4); LYMPHOCYTES % (MANUAL) 28 % (16-48); MONOCYTES % (MANUAL) 17 % (0-11.0); NEUTROPHILS % (MANUAL) 53 (42-76); PLATELET ESTIMATE DECREASED
[2025-02-06] MEDS: METOPROLOL TARTRATE 25 MG TABLET PO SCH (14:22)
[2025-02-06 16:00] VITALS: BP 117/69; TEMP 97.7; O2SAT 99
[2025-02-07 01:07] LABS: PTH, INTACT 22 pg/mL (15-65)
[2025-02-13 11:07] LABS: *SPE A/G RATIO 0.3 (0.7-1.7); *SPE ALBUMIN 2.0 g/dL (2.9-4.4); *SPE ALPHA-1-GLOBULIN 0.3 g/dL (0.0-0.4); *SPE ALPHA-2-GLOBULIN 0.5 g/dL (0.4-1.0); *SPE BETA GLOBULIN 2.9 g/dL (0.7-1.3); *SPE GLOBULIN, TOTAL 6.1 g/dL (2.2-3.9); *SPE M-SPIKE 3.5 g/dL (Not Observed); *SPE PROTEIN TOTAL 8.1 g/dL (6.0-8.5); *SPEGAMMA GLOBULIN 2.4 g/dL (0.4-1.8)
== END 2025-02-06 20:45 | DRG 309 ==
LOC: ER 11:25 → MED 13:40 → TELE 14:53
DX: I48.92 Unspecified atrial flutter (principal); D61.818 Other pancytopenia; G20.A1 Parkinson's disease without dyskinesia, without mention of fluctuations; R13.10 Dysphagia, unspecified; B86 Scabies; B96.89 Other specified bacterial agents as the cause of diseases classified elsewhere; N39.0 Urinary tract infection, site not specified; D50.9 Iron deficiency anemia, unspecified; E03.9 Hypothyroidism, unspecified; F02.80 Dementia in other diseases classified elsewhere, unspecified severity, without behavioral disturbance, psychotic disturbance, mood disturbance, and anxiety; G40.909 Epilepsy, unspecified, not intractable, without status epilepticus; I12.9 Hypertensive chronic kidney disease with stage 1 through stage 4 chronic kidney disease, or unspecified chronic kidney disease; N18.9 Chronic kidney disease, unspecified; E78.5 Hyperlipidemia, unspecified; I48.91 Unspecified atrial fibrillation; M19.90 Unspecified osteoarthritis, unspecified site; Z79.01 Long term (current) use of anticoagulants; Z79.899 Other long term (current) drug therapy; Z88.0 Allergy status to penicillin; Z96.651 Presence of right artificial knee joint; N40.1 Benign prostatic hyperplasia with lower urinary tract symptoms; K13.1 Cheek and lip biting
CPT/HCPCS: 36415; 71045-TC; 76770-TC; 80048-TC; 80053-TC; 80061-TC; 81001; 82550-TC; 82570-TC; 82962-TC; 83735-TC; 83880; 83970; 84100-TC; 84155; 84165; 84300-TC; 84443-TC; 84484-TC; 85027-TC; 87040-TC; 87081-TC; 87086-TC; 87186-TC; 92526; 92611; 93307-TC; A4223; G0378; J0696; J1956; J3490; J7030; J7042; J7050; J7060